=== PATIENT | female | born 1965 | race Two or more races ===

== ENCOUNTER 2020-11-12 08:18 | Emergency (ER) | payer OTHER ==
[~2020-11-12] VITALS: Ht 167.6 cm; Wt 79.4 kg
[2020-11-12 08:49] VITALS: BP 131/71
[2020-11-12 09:15] LABS: Urine Bacteria FEW /hpf (None Seen); Urine Blood Negative /uL (Negative); Urine Mucus FEW (None Seen); Urine Specific Gravity 1.024 (1.001-1.035); Urine WBC 3 /hpf (0 - 5)
[2020-11-12] MEDS ORDERED: KETOROLAC TROMETH 60MG/2ML VIAL IM ONE (09:15)
== END 2020-11-12 09:52 | disposition home or self-care (01) ==
LOC: ER 08:18
DX: G89.29 Other chronic pain (principal); M54.5 Low back pain; M51.36 Other intervertebral disc degeneration, lumbar region; E11.9 Type 2 diabetes mellitus without complications; Z88.2 Allergy status to sulfonamides
CPT/HCPCS: 72100; 81001; 96372; 99284; J1885